=== PATIENT | male | born 1995 | race American Indian/Alaskan Native ===

== ENCOUNTER 2017-02-02 13:38 | Emergency (ER) | payer BC ==
[2017-02-02 13:49] VITALS: BP 113/60
[2017-02-02] MEDS ORDERED: FLEXERIL PO ONE (16:35)
[2017-02-02] MEDS ORDERED: TORADOL IM ONE (16:35)
[2017-02-02] MEDS ORDERED: MOTRIN ONE (16:39)
[2017-02-02] MEDS ORDERED: MOTRIN PO ONE (16:45)
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
== END 2017-02-02 17:35 | disposition home or self-care (01) ==
LOC: ED 13:38
DX: S16.1XXA Strain of muscle, fascia and tendon at neck level, initial encounter (principal); M54.5 Low back pain; V89.2XXA Person injured in unspecified motor-vehicle accident, traffic, initial encounter; Y93.89 Activity, other specified; Y99.8 Other external cause status; Y92.89 Other specified places as the place of occurrence of the external cause
CPT/HCPCS: 99282; J1885